=== PATIENT | female | born 1990 | race Caucasian/White ===

== ENCOUNTER 2021-05-10 14:48 | Emergency (ER) | payer OTHER ==
[2021-05-10 18:18] LABS: BILIRUBIN NEGATIVE (NEGATIVE); BLOOD 3+ Ery/uL (NEGATIVE); CLARITY CLEAR (CLEAR); COLOR YELLOW (YELLOW); GLUCOSE (U) NORMAL (NORMAL); LEUKOCYTES 1+ Leu/uL (NEGATIVE); NITRITE NEGATIVE (NEGATIVE); PROTEIN 1+ mg/dL (NEGATIVE); UROBILINOGEN 0.2 mg/dL (0.2-1.0)
[2021-05-10 18:25] LABS: BACTERIA 1+
[2021-05-10] MEDS ORDERED: BACTRIM DS TAB1 EACH PO (18:41)
== END 2021-05-10 18:54 | disposition home or self-care (01) ==
LOC: FER 14:48
PROVIDERS: Nurse Practitioner Family
DX: S90.01XA Contusion of right ankle, initial encounter (principal); S80.212A Abrasion, left knee, initial encounter; S40.212A Abrasion of left shoulder, initial encounter; N39.0 Urinary tract infection, site not specified; V49.40XA Driver injured in collision with unspecified motor vehicles in traffic accident, initial encounter; Y92.410 Unspecified street and highway as the place of occurrence of the external cause
CPT/HCPCS: 71045; 73610; 73630; 81001